=== PATIENT | male | born 1935 | race Caucasian/White ===

== ENCOUNTER 2020-09-25 06:30 | Outpatient (NON) | payer MEDICARE, SELFPAY ==
[2020-09-26 01:02] LABS: SARS-CoV-2 RNA PCR Negative
== END 2020-09-25 06:31 ==
LOC: ANHCOVIDDT 06:30
PROVIDERS: PCP Family Medicine Adolescent Medicine; Visit Provider Physician Assistant
DX: Z20.828 Contact with and (suspected) exposure to other viral communicable diseases (principal); R52 Pain, unspecified; R53.83 Other fatigue
CPT/HCPCS: 87635; C9803; U0003

== ENCOUNTER 2022-05-14 12:33 | Emergency (ER) | payer MEDICARE, SELFPAY ==
--- NOTE | ~2022-05-14 | XR_ITS ---
EXAMINATION: XR chest 1V portable Exam Date/Time: 05/14/2022 14:05 CDT HISTORY: covid Comparison: 09/12/2016. RESULT: Lines, tubes, and devices: None. Lungs and pleura: Bibasilar scar/atelectasis otherwise clear. Cardiomediastinal silhouette: Stable cardiomediastinal silhouette. Other: No acute osseous or upper abdominal finding. IMPRESSION: No acute cardiopulmonary process. Reviewed, dictated and finalized at location K.
[2022-05-14 12:46] VITALS: BP 175/85; PULSE 90; RESP 18; TEMP 36.9; O2SAT 99
[2022-05-14 13:47] VITALS: BP 160/101; PULSE 85; RESP 20; O2SAT 97
--- NOTE | 2022-05-14 14:09 | ED.URI ---
HPI - URI/Sore Throat General Chief Complaint: Upper Respiratory Infection Stated Complaint: covid + Time Seen by Provider: 05/14/22 13:44 History of Present Illness HPI Narrative: 87-year-old male with a history of COPD here for evaluation of rhinorrhea, congestion, fevers, cough for the past 3 days. Tmax 101. Patient states he tested positive for COVID at home. He is fully vaccinated. Has been taking Tylenol and Ibuprofen with good relief; last took Ibuprofen 3 hours [employer]. He contacted his PCP who told him to come to the ED. Has pulse ox at home; states he has been above 95 the entire time he has been sympomatic. Denies chest pain, shortness of breath, syncope. Related Data Allergies Allergy/AdvReac Type Severity Reaction Status Date / Time Penicillins Allergy Intermediate Rash Verified 02/08/16 09:38 albuterol Allergy Unknown Verified 02/08/16 09:38 Sulfa (Sulfonamide Allergy Unknown Verified 02/08/16 09:38 Antibiotics) Review of Systems Review of Systems: Gen: Reports fevers Eyes: Denies eye pain or visual change ENT: Reports congestion Respiratory: Reports cough. 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 Head: Normocephalic and atraumatic. EYES: PERRLA/EOMI, conjunctivae clear NOSE: No nasal drainage EARS: External ear normal in appearance THROAT: Oropharynx is clear. Mucous membranes are moist. NECK: Supple. No adenopathy, no masses. RESPIRATORY: Airway patent, respirations nonlabored. No wheezing. CARDIOVASCULAR: Regular rate and rhythm without murmurs, rubs, or gallops. ABDOMINAL: Normoactive bowel sounds. Soft, nontender, nondistended. No rebound tenderness or guarding. MUSCULOSKELETAL: Extremities are warm and well-perfused. Moves all extremities well. No edema. NEURO: Normal speech. No focal neurologic deficits. SKIN: Skin is warm and dry. No rashes. PSYCHIATRIC: Normal affect/mood. Course Vital Signs Vital signs: Vital Signs Temperature 98.4 F 05/14/22 12:46 Pulse Rate 90 05/14/22 12:46 Respiratory Rate 18 05/14/22 12:46 Blood Pressure 175/85 H 05/14/22 12:46 Pulse Oximetry 99 05/14/22 12:46 Oxygen Delivery Room Air 05/14/22 12:46 Temperature 98.4 F 05/14/22 12:46 Pulse Rate 95 05/14/22 16:02 Respiratory Rate 18 05/14/22 16:02 Blood Pressure 152/92 H 05/14/22 16:02 Pulse Oximetry 98 05/14/22 16:02 Oxygen Delivery Room Air 05/14/22 14:32 MDM - URI/Sore Throat MDM Narrative Medical decision making narrative: 87-year-old male with a history of COPD here for evaluation of fevers, chills, upper respiratory symptoms in the setting of a positive COVID test at home. Patient is hypertensive, his vital signs are otherwise normal, no hypoxia. His lungs are clear to auscultation. Chest x-ray clear, basic labs within normal limits. COVID test positive in the ED. No shortness of breath, chest pain, calf pain or tachycardia to suggest PE, and patient is already anticoagulated. Unfortunately, patient is not a candidate for Paxlovid given his lengthy list of home medications. Advised him to follow-up with his PCP for possible monoclonal antibody infusions. At this time he does not meet criteria for admission for COVID, he is not hyp
[2022-05-14 14:31] VITALS: BP 154/97; PULSE 94; RESP 18; O2SAT 96
[2022-05-14 14:32] VITALS: O2SAT 96
[2022-05-14 14:33] LABS: SARS-CoV-2 RNA PCR Positive
[2022-05-14 14:49] LABS: Basophils Absolute Auto 0.1 K/mm3 (0.0-0.1); Basophils Percent Auto 0.6 % (0.2-1.2); Eosinophils Absolute Auto 0.1 K/mm3 (0-0.3); Eosinophils Percent Auto 0.5 % (0-4.4); Hematocrit 41.7 % (42.0-52.0); Hemoglobin 13.8 g/dL (14.0-18.0); Immature Granulocyte Absolute 0.04 K/mm3 (0.00-0.031); Immature Granulocyte Percent A 0.4 % (0-0.5); Lymphocytes Absolute Auto 1.42 K/mm3 (0.9-3.2); Lymphocytes Percent Auto 13.5 % (18.3-44.2); Mean Corpuscular HGB Conc 33.1 g/dl (32-36); Mean Corpuscular Hemoglobin 30.5 pg (26-34); Mean Corpuscular Volume 92.1 fl (80-100); Mean Platelet Volume 9.4 fl (7.4-10.4); Monocytes Percent Auto 9.1 % (2.6-8.5); Neutrophils Percent Auto 75.9 % (45.5-73.1); Platelet Count Result 149 k/mm3 (150-375); Red Blood Count 4.53 M/mm3 (4.6-6.20); Red Cell Distribution Width 13.7 % (11.5-14.5); White Blood Count 10.5 K/mm3 (4.5-10.0)
[2022-05-14 14:58] LABS: Alanine Aminotransferase 15 U/L (6-50); Albumin Level 3.9 g/dL (3.5-5.1); Alkaline Phosphatase 80 U/L (38-126); Anion Gap 7 mmol/L (8-16); Aspartate Amino Transferase 29 U/L (17-59); Bilirubin,Total 1.6 mg/dL (0.2-1.3); Blood Urea Nitrogen 17 mg/dL (9-20); Calcium 8.5 mg/dL (8.4-10.2); Carbon Dioxide 24 mmol/L (22-30); Chloride 104 mmol/L (98-107); Estimated CRCL calculation 66 ml/min; Estimated Glomerular Filt Rate > 60; Glucose 85 mg/dL (65-110); Potassium 4.1 mmol/L (3.4-5.0); Sodium 135 mmol/L (137-145)
[2022-05-14] MEDS: ACETAMINOPHEN 325 MG TABLET 650 MG PO (15:25)
[2022-05-14 16:02] VITALS: BP 152/92; PULSE 95; RESP 18; O2SAT 98
== END 2022-05-14 16:03 | disposition home or self-care (01) ==
PROVIDERS: Physician Assistant; Emergency Provider Emergency Medicine; PCP Family Medicine Adolescent Medicine
DX: U07.1 COVID-19 (principal)
CPT/HCPCS: 36415; 71045; 80053; 85025; 99283; A9270; C9803; U0003; U0005

== ENCOUNTER 2023-11-07 06:06 | Inpatient (IN) | payer MEDICARE, SELFPAY ==
[2023-11-07] VITALS (21 sets, daily range): BP systolic 112–154; BP diastolic 58–102; PULSE 82–131; RESP 16–20; TEMP 36.3–37.2; O2SAT 88–99; BMI 25.2
--- NOTE | ~2023-11-07 | XR_ITS ---
XR chest 2V 11/10/2023 14:03 Indication: Shortness of breath Procedure: PA and lateral views the chest Comparison: Comparison to multiple prior studies sequentially, with oldest reviewed study dated 02/07. Findings: Right perihilar and bibasilar airspace disease. Small right pleural effusion. Borderline he art size. Impression: 1: Bibasilar airspace disease, compatible with pneumonia. Reviewed, dictated and finalized at location A. NE WATCHMAN Impression: 1: Bibasilar airspace disease, compatible with pneumonia.
--- NOTE | ~2023-11-07 | XR_ITS ---
EXAMINATION: XR chest 1V portable DATE: 11/07/2023 06:27 INDICATION: Chest pain. Cough. TECHNIQUE: A single frontal view of the chest was obtained. COMPARISON: Chest single view 05/14/2022, chest CT 11/16/2015 FINDINGS: There are airspace opacities in the right mid and lower lung zones and left lower lung zone . No pleural effusion or pneumothorax. The heart size is normal. IMPRESSION: 1. Airspace opacities in right mid and lower lung zones and left lower lung zone, consistent with ate lectasis/scarring versus pneumonia. Reviewed, dictated and finalized at location E. L TOUCH UP PAINTER IMPRESSION: 1. Airspace opacities in right mid and lower lung zones and left lower lung zon e, consistent with atelectasis/scarring versus pneumonia.
--- NOTE | 2023-11-07 06:15 | ECG_ITS ---
Measurements Intervals [place] Rate: 116 P: [place]: 0 QRS: 31 QRSD: 108 T: 29 QT: 329 QTc: 458 Interpretive Statements ATRIAL FIBRILLATION WITH RAPID VENTRICULAR RESPONSE MODERATE INTRAVENTRICULAR CONDUCTION DELAY [105+ ms QRS DURATION, 80+ ms Q/S IN V1/V2, NO Q AND 60+ ms R IN I/aVL/V5/V6] NONSPECIFIC ST & T-WAVE ABNORMALITY NO PREVIOUS ECG AVAILABLE FOR COMPARISON Electronically Signed On 11-07-2023 15:56:52 DRAGGER OUT by Kendrick Pink M.D.
--- NOTE | 2023-11-07 06:16 | ED.CHESTPAIN ---
HPI - Chest Pain General Chief Complaint: Chest Pain Stated Complaint: chest pain Time Seen by Provider: 11/07/23 06:14 Source: patient and family () Mode of arrival: ambulatory Limitations: no limitations History of Present Illness HPI narrative: [age]-year-old male with past medical history COPD (not on supplemental O2) and atrial fibrillation (on Pradaxa/dabigatran) presents with report of chest pain of 2 days duration. Patient has been having a cough that then became tightness across his chest. His cough has been productive ability/brown sputum. No palliating provoking factors. Chest pain radiates to his back. No fevers or sick contacts. He is complaining a headache and shortness of breath as well as back pain. Is reported that he has a history of pneumonia; he states he had a pneumonia when he was in the many years ago and had multiple episodes of pneumonia subsequently but none in the past year. He uses an inhaler for his COPD he. He trialed Mucinex and an expectorant and NyQuil. Related Data Home Medications Medication Instructions Recorded Confirmed celecoxib 200 mg capsule (Celebrex) 200 mg PO DAILY 06/22/22 12/09/22 dabigatran etexilate 150 mg 150 mg PO BID 06/22/22 12/09/22 capsule (Pradaxa) mesalamine 500 mg capsule,extended 1,000 mg PO BID 06/22/22 12/09/22 release metoprolol succinate 50 mg 50 mg PO DAILY 06/22/22 12/09/22 tablet,extended release 24 hr byjscafr-hv-oyypr 300 mcg-K 60 1 tablet PO DAILY 06/22/22 12/09/22 mcg-lycop 600 mcg-lutein 300 mcg tablet (Centrum Silver Men) potassium chloride 10 mEq 10 meq PO DAILY 06/22/22 12/09/22 capsule,extended release pravastatin 40 mg tablet 40 mg PO DAILY 06/22/22 12/09/22 mometasone-formoterol HFA 200 2 puff inhalation BID 12/09/22 12/09/22 mcg-5 mcg/actuation aerosol inhaler (Dulera) Allergies Allergy/AdvReac Type Severity Reaction Status Date / Time Penicillins Allergy Intermediate Rash Verified 11/07/23 06:17 albuterol Allergy Unknown Unknown Verified 11/07/23 06:17 Sulfa (Sulfonamide Allergy Unknown Unknown Verified 11/07/23 06:17 Antibiotics) codeine AdvReac Unknown Unknown Verified 11/07/23 06:17 furosemide AdvReac Unknown Hypotension Verified 11/07/23 06:17 naproxen AdvReac Unknown Unknown Verified 11/07/23 06:17 warfarin AdvReac Unknown Other Verified 11/07/23 06:17 PMFSH Past Medical History Medical History (Updated 11/07/23 @ 08:43 by Deidre Ureña MD) Atrial fibrillation Chronic obstructive pulmonary disease, unspecified COVID-19 History of cervical fracture 2014 History of deep venous thrombosis (DVT) of distal vein of right lower extremity History of pulmonary embolism Hx of fracture of right hip Hx: recurrent pneumonia Surgical History Surgical History History of total bilateral knee replacement right, 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, 10/30 Family History Family History (Updated 06/22/22 @ 08:34 by Selene Carver MA) Mother Breast cancer Sibling Heart disease Hypertension Sibling Hypertension Social History Social History (Updated 11/07/23 @ 08:37 by Deidre Ureña MD) Smoking status: Never smoker Second hand tobacco smoke exposure: Yes Alcohol intake: current Alcohol use details: Ocassionally Substance use: never Substance use type: does not use Living arrangements: with family Additional living arrangements comments: Occupation/Education: retired Gender identity (if verbalized by the patient): Male Spiritual care concerns: No Agree to blood products: Yes Exam Narrative: GENERAL: well-nourished, and in no acute distress, although appears acutely ill. Appears younger than stated age HEAD: Normocephalic, atraumatic. EYES: Non injected, non icteric ENT: No epistaxis. NECK: Supple. No meningismus CHEST: Diffuse wheezing bilaterally. Occasionally coughing. HEART: Irregularly irr
[2023-11-07 06:27] LABS: Basophils Absolute Auto 0.1 K/mm3 (0.0-0.1); Basophils Percent Auto 0.5 % (0.2-1.2); Eosinophils Percent Auto 0.3 % (0-4.4); Hematocrit 48.9 % (42.0-52.0); Hemoglobin 15.6 g/dL (14.0-18.0); Immature Granulocyte Absolute 0.09 K/mm3 (0.00-0.031); Immature Granulocyte Percent A 0.7 % (0-0.5); Lymphocytes Absolute Auto 1.74 K/mm3 (0.9-3.2); Lymphocytes Percent Auto 12.8 % (18.3-44.2); Mean Corpuscular HGB Conc 31.9 g/dl (32-36); Mean Corpuscular Hemoglobin 30.2 pg (26-34); Mean Corpuscular Volume 94.8 fl (80-100); Mean Platelet Volume 9.9 fl (7.4-10.4); Monocytes Absolute Auto 0.8 K/mm3 (0.1-0.6); Monocytes Percent Auto 5.6 % (2.6-8.5); Neutrophils Absolute Auto 10.9 K/mm3 (1.3-6.7); Neutrophils Percent Auto 80.1 % (45.5-73.1); Platelet Count Result 151 k/mm3 (150-375); Red Blood Count 5.16 M/mm3 (4.6-6.20); Red Cell Distribution Width 13.8 % (11.5-14.5); White Blood Count 13.6 K/mm3 (4.5-10.0)
[2023-11-07 06:42] LABS: Alanine Aminotransferase 18 U/L (6-50); Albumin Level 4.4 g/dL (3.5-5.1); Alkaline Phosphatase 93 U/L (38-126); Anion Gap 11 mmol/L (8-16); Aspartate Amino Transferase 32 U/L (17-59); Bilirubin,Total 1.8 mg/dL (0.2-1.3); Blood Urea Nitrogen 18 mg/dL (9-20); Calcium 9.3 mg/dL (8.4-10.2); Carbon Dioxide 24 mmol/L (22-30); Chloride 102 mmol/L (98-107); Estimated CRCL calculation 58 ml/min; Estimated Glomerular Filt Rate > 60; Glucose 100 mg/dL (65-110); INR 1.5; Potassium 3.9 mmol/L (3.4-5.0); Prothrombin Time 18.8 Seconds (11.1-14.7); Sodium 137 mmol/L (137-145)
[2023-11-07 06:44] LABS: Partial Thromboplastin Time 73.6 SECONDS (22.3-36.8)
[2023-11-07 06:45] LABS: D Dimer 0.37 ug/mL (<0.48)
[2023-11-07 06:53] LABS: NT Pro B Type Natriuretic Pept 2250 pg/mL (19.9-100); Troponin I < 0.012 ng/mL (0.000-0.034)
[2023-11-07 07:02] LABS: Influenza A QL RT-PCR Negative (Negative); Influenza B QL RT-PCR Negative (Negative); RSV RNA, RT-PCR Positive (Negative); SARS-CoV-2 RNA PCR Negative (Negative)
[2023-11-07] MEDS: AZITHROMYCIN 500 MG/NS 250 ML 500 MG/250 ML BAG 250 MG IVPB (07:21)
[2023-11-07] MEDS: predniSONE 20 MG TABLET 60 MG PO (07:21)
[2023-11-07] MEDS: LEVALBUTEROL NEB 1.25 MG/3 ML INHALATION (07:25)
[2023-11-07] MEDS: IPRATROPIUM BR 0.02% INH SOLN 0.5 MG/2.5 ML VIAL INHALATION (07:25)
[2023-11-07] MEDS: LACTATED RINGERS 1,000 ML 75 ML IV CONT (07:45)
--- NOTE | 2023-11-07 08:20 | ADMGEN ---
This patient, Jatin Dowd, was admitted to Medical Room 243-01. Patient/family oriented to hospital policies and general routines including ID bracelet, bed and alarms, visiting hours, pain management, procedures, bathroom and other care routines, personal items, smoking policy, room service/diet, and visiting hours. Information on how to activate the Rapid Response Team has been discussed. Patient/Family are encouraged to report perceived risks to care and to ask questions if they do not understand what they are told or what they should do.
[2023-11-07] MEDS: METOPROLOL TARTRATE 50 MG TAB PO (10:45)
--- NOTE | 2023-11-07 12:31 | PM.IMHP ---
H&P: HPI History of Present Illness Date/Time: 11/07/23 12:31 Chief Complaint: Patient came to the ER for evaluation due to cough congestion and chest pain Narrative: He is a pleasant gentleman with a prior history of COPD and atrial fibrillation who is complaining of cough and congestion for the last couple of days. He is also complaining of chest discomfort off and on for couple days as well, associated with cough, located in the anterior chest with some radiation to the back, no radiation to jaws or upper arms. No association with palpitations or swelling. Patient comes the ER for evaluation, workup was done which showed high blood pressure which has been controlled on meds. Patient has also been diagnosed with RSV for which he has been started on oxygen via nasal cannula and symptomatic care. Given his cardiac history, he is being admitted under observation for tele monitoring, follow-up cardiac enzymes and cardiology evaluation. Review of Systems Review of Systems: 14 systems were reviewed with pertinent positives and negatives per HPI. Except as documented in the HPI/progress notes, all other systems were reviewed and are negative. 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, 10/30 Family History Family History Mother Breast cancer Sibling Heart disease Hypertension Sibling Hypertension Social History Social History Smoking status: Never smoker Second hand tobacco smoke exposure: Yes Alcohol intake: never Alcohol use details: Ocassionally Substance use: never Substance use type: does not use Do You Feel Safe in your Home?: Yes Lack of Transportation: No Lack of Food: Never True Current Housing: I Have Housing Concerned About Future Housing: No Difficulty Paying Gas/Electric Bills: No Difficulty Paying for Meds: No Currently Unemployed: No Education: High School Diploma/GED Difficulty w/ Childcare or Family Care: No Living arrangements: with family Additional living arrangements comments: Occupation/Education: retired Gender identity (if verbalized by the patient): Male Spiritual care concerns: No Agree to blood products: Yes Meds Home Medications and Allergies Home Medications Medication Instructions Recorded Confirmed Type celecoxib 200 mg capsule (Celebrex) 200 mg PO DAILY 06/22/22 11/07/23 History dabigatran etexilate 150 mg 150 mg PO BID 06/22/22 11/07/23 History capsule (Pradaxa) mesalamine 500 mg capsule,extended 1,000 mg PO BID 06/22/22 11/07/23 History release metoprolol succinate 50 mg 50 mg PO DAILY 06/22/22 11/07/23 History tablet,extended release 24 hr taaalsot-tg-rhaca 300 mcg-K 60 1 tablet PO DAILY 06/22/22 11/07/23 History mcg-lycop 600 mcg-lutein 300 mcg tablet (Centrum Silver Men) potassium chloride 10 mEq 10 meq PO DAILY 06/22/22 11/07/23 History capsule,extended release pravastatin 40 mg tablet 40 mg PO DAILY 06/22/22 11/07/23 History mometasone-formoterol HFA 200 2 puff inhalation BID 12/09/22 11/07/23 History mcg-5 mcg/actuation aerosol inhaler (Dulera) clonazepam 0.5 mg tablet 0.5 mg PO QHS PRN restless leg(s) 07/18/23 11/07/23 Rx #30 tabs tamsulosin 0.4 mg capsule 0.4 mg PO DAILY 11/07/23 11/07/23 History vit C 250 mg-vit E 90 mg-zinc 40 1 tablet
--- NOTE | 2023-11-07 12:33 | PM.CNCAR ---
Assessment and Plan Assessment and plan (1) Atrial fibrillation with RVR: Code(s): I48.91 - Unspecified atrial fibrillation Status: Acute Assessment and Plan: Currently in RVR, likely precipitated by his COPD exacerbation and RSV infection. Has been taking Metoprolol 50mg QD at home, will increase dose of beta yahaira to 25mg Q6H for rate control. Continue to increase beta yahaira as needed for additional rate control as tolerated by his blood pressure. Resume home anticoagulant. (2) RSV (respiratory syncytial virus infection): Code(s): B33.8 - Other specified viral diseases Status: Acute Assessment and Plan: As per primary team (3) Acute exacerbation of chronic obstructive pulmonary disease: Code(s): J44.1 - Chronic obstructive pulmonary disease with (acute) exacerbation Status: Acute Assessment and Plan: As per primary team. History of Present Illness History of Present Illness Consult date/time: 11/07/23 12:33 Requesting physician: Azar Michael MD Consult reason: atrial fibrillation Reason For Visit: COPD Exacerbation due to RSV/Rate Controlled Afib/ Narrative: We are consulted for chest pain, atrial fibrillation with RVR. This is an 88 year old who follows with Dr. Zee. He has a history of symptomatic orthostatic hypotension, chronic atrial fibrillation, coronary artery disease, cardiomyopathy, chronic systolic and diastolic heart failure, pulmonary hypertension, chronic exertional dyspnea, history of bilateral DVT, chronic anticoagulation, history of pulmonary embolism. He has been on Metoprolol 50mg at night (had issues with low blood pressure when taken in the mornings). He did not tolerate Digoxin in the past. Patient presented with a productive cough and chest tightness that has been occurring for the past two days. Reports having fevers at home. He did test positive for RSV upon admission. Has a mild leukocytosis of 13.6. Troponin is negative. CXR with airspace opacities in right mid and lower lung zones and left lower lung zone, consistent with atelectasis/scarring versus pneumonia. EKG on admission with atrial fibrillation at a rate of 116bpm. Patient states he feels much better since admission. Still having productive cough but his chest tightness is feeling better. Chest tightness would come on with inspiration and make his ribs hurt. HR in the 130s at the time of my evaluation. 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, 10/30 Family History Family History Mother Breast cancer Sibling Heart disease Hypertension Sibling Hypertension Social History Social History Smoking status: Never smoker Second hand tobacco smoke exposure: Yes Alcohol intake: never Alcohol use details: Ocassionally Substance use: never Substance use type: does not use Do You Feel Safe in your Home?: Yes Lack of Transportation: No Lack of Food: Never True Current Housing: I Have Housing Concerned About Future Housing: No Difficulty Paying Gas/Electric Bills: No Difficulty Paying for Meds: No Currently Unemployed: No Education: High School Diploma/GED Difficulty w/ Childcare or Family Care: No Living arrangements: with family Additional living arrangemen
[2023-11-07 13:40] LABS: Troponin I < 0.012 ng/mL (0.000-0.034)
--- NOTE | 2023-11-07 16:03 | PC.NURSE ---
Recyaronved JASMINA from Dr. Michael @ 1600 to order loperamide 2mg PRN to patient's med list.
[2023-11-07] MEDS: OPTI-GEN TAB 1 TABLET PO (16:30)
[2023-11-07] MEDS: DABIGATRAN ETEXILATE 150 MG CAPSULE PO (16:30)
[2023-11-07] MEDS: LOPERAMIDE HCL 2 MG CAPSULE PO (16:30)
[2023-11-07] MEDS: METOPROLOL TARTRATE 25 MG TABLET PO ×2 (17:25→23:00)
[2023-11-07] MEDS: MESALAMINE 250 MG CAP CR 1000 MG PO (17:27)
[2023-11-07] MEDS: PRAVASTATIN SODIUM 20 MG TABLET 40 MG PO (17:27)
[2023-11-07] MEDS: TAMSULOSIN HCL 0.4 MG CAPSULE PO (17:27)
[2023-11-07 18:25] LABS: Troponin I < 0.012 ng/mL (0.000-0.034)
[2023-11-07] MEDS: FLUTICASONE/SALMETEROL 230-21 MCG INHALER 1 PUFF 2 PUFF INHALATION (20:00)
[2023-11-07] MEDS: ACETAMINOPHEN 325 MG TABLET 650 MG PO (23:00)
[2023-11-08] VITALS (16 sets, daily range): BP systolic 107–161; BP diastolic 50–90; PULSE 67–130; RESP 18–20; TEMP 36.7–37; O2SAT 91–98
[2023-11-08] MEDS: LACTATED RINGERS 1,000 ML 75 ML IV CONT ×2 (00:05→20:09)
[2023-11-08] MEDS: METOPROLOL TARTRATE 25 MG TABLET PO ×3 (05:30→17:46)
[2023-11-08 05:38] LABS: Hematocrit 41.2 % (42.0-52.0); Hemoglobin 13.2 g/dL (14.0-18.0); Immature Platelet Fraction Pct 3.3 % (0.9-11.2); Mean Corpuscular Hemoglobin 30.3 pg (26-34); Mean Corpuscular Volume 94.5 fl (80-100); Mean Platelet Volume 10.4 fl (7.4-10.4); Platelet Count Result 143 k/mm3 (150-375); Red Blood Count 4.36 M/mm3 (4.6-6.20); Red Cell Distribution Width 13.5 % (11.5-14.5); White Blood Count 9.5 K/mm3 (4.5-10.0)
[2023-11-08 05:49] LABS: Anion Gap 7 mmol/L (8-16); Blood Urea Nitrogen 20 mg/dL (9-20); Calcium 9.4 mg/dL (8.4-10.2); Carbon Dioxide 26 mmol/L (22-30); Chloride 104 mmol/L (98-107); Estimated CRCL calculation 58 ml/min; Estimated Glomerular Filt Rate > 60; Glucose 100 mg/dL (65-110); Phosphorus 2.2 mg/dL (2.5-4.5); Potassium 3.9 mmol/L (3.4-5.0); Sodium 137 mmol/L (137-145)
[2023-11-08] MEDS: FLUTICASONE/SALMETEROL 230-21 MCG INHALER 1 PUFF 2 PUFF INHALATION ×2 (07:47→20:20)
[2023-11-08] MEDS: DABIGATRAN ETEXILATE 150 MG CAPSULE PO ×2 (09:17→16:32)
[2023-11-08] MEDS: MESALAMINE 250 MG CAP CR 1000 MG PO ×2 (09:17→16:32)
[2023-11-08] MEDS: OPTI-GEN TAB 1 TABLET PO ×2 (09:17→16:32)
[2023-11-08] MEDS: AZITHROMYCIN 500 MG/NS 250 ML 500 MG/250 ML BAG 250 MG IVPB (09:18)
[2023-11-08] MEDS: MULTIVITAMINS /C LUTEIN (CENTRUM SILVER) TABLET *BKC 1 TAB PO (09:18)
[2023-11-08] MEDS: POTASSIUM CHLORIDE 10 MEQ ER TABLET PO (09:18)
[2023-11-08] MEDS: predniSONE 20 MG TABLET 40 MG PO (09:18)
[2023-11-08] MEDS: TAMSULOSIN HCL 0.4 MG CAPSULE PO ×2 (09:18→16:32)
--- NOTE | 2023-11-08 10:20 | PM.PNCARD ---
Progress Note: A&P Assessment and Plan (1) Atrial fibrillation with RVR: Code(s): I48.91 - Unspecified atrial fibrillation Status: Acute Assessment and Plan: RVR likely precipitated by his COPD exacerbation and RSV infection. Has been taking Metoprolol 50mg QD at home. I increased dose of beta yahaira to 25mg Q6H for rate control (equivalent of 100mg daily). He is now rate controlled. Recommend continuing with current dose of Metoprolol. At time of discharge, recommend to discharge him on Metoprolol succinate 100mg daily. Continue Pradaxa. Cardiology will sign off at this time. Will arrange for follow up with Dr. Zee. Please call us back if needed. (2) RSV (respiratory syncytial virus infection): Code(s): B33.8 - Other specified viral diseases Status: Acute Assessment and Plan: As per primary team. (3) Acute exacerbation of chronic obstructive pulmonary disease: Code(s): J44.1 - Chronic obstructive pulmonary disease with (acute) exacerbation Status: Acute Assessment and Plan: As per primary team. Subjective Date/time seen: 11/08/23 10:20 Interval history: Reason for visit: Atrial fibrillation with RVR HPI: We are consulted for chest pain, atrial fibrillation with RVR. This is an 88 year old who follows with Dr. Zee. He has a history of symptomatic orthostatic hypotension, chronic atrial fibrillation, coronary artery disease, cardiomyopathy, chronic systolic and diastolic heart failure, pulmonary hypertension, chronic exertional dyspnea, history of bilateral DVT, chronic anticoagulation, history of pulmonary embolism. He has been on Metoprolol 50mg at night (had issues with low blood pressure when taken in the mornings). He did not tolerate Digoxin in the past. Patient presented with a productive cough and chest tightness that has been occurring for the past two days. Reports having fevers at home. He did test positive for RSV upon admission. Has a mild leukocytosis of 13.6. Troponin is negative. CXR with airspace opacities in right mid and lower lung zones and left lower lung zone, consistent with atelectasis/scarring versus pneumonia. EKG on admission with atrial fibrillation at a rate of 116bpm. Patient states he feels much better since admission. Still having productive cough but his chest tightness is feeling better. Chest tightness would come on with inspiration and make his ribs hurt. HR in the 130s at the time of my evaluation. Date of service 11/08: Feeling better. Was coughing a lot last night with productive sputum. Tele with rate controlled AFIB. Review of Systems Review of Systems: + Pleuritic chest pain. + Cough Exam Const: General: no acute distress HENMT: Mouth: Yes dry mucous membranes Eyes: General: appearance normal, both eyes and all related structures Sclera: sclerae normal Neck: Neck: supple Resp: Effort & Inspection: normal respiratory effort Auscultation: diminished lung sounds Cardio: Rhythm: abnormal rhythm irregularly irregular Skin: General skin exam: normal color Neuro: Speech: normal speech Psych: Mental Status: mental status grossly normal Affect: normal affect Objective Data Vital Signs Vital Signs: Vital Signs - 24 hr 11/07/23 10:45 11/07/23 12:04 11/07/23 13:50 Temperature 36.7 C Pulse Rate 131 H 122 H 96 Respiratory Rate 20 Blood Pressure 142/73 H Pulse Oximetry 98 Oxygen Delivery Oxygen Flow Rate Fraction of Inspired Oxygen 11/07/23 17:25 11/07/23 16:00 11/07/23 16:30 Temperature 36.3 C L Pulse Rate 83 88 87 Respiratory Rate 20 Blood Pressure 122/58 L Pulse Oximetry 98 Oxygen Delivery Oxygen Flow Rate Fraction of Inspired Oxygen 11/07/23 19:59 11/07/23 20:01 11/07/23 20:00 Temperature 36.8 C Pulse Rate 89 84 Respiratory Rate 18 Blood Pressure 131/84 Pulse Oximetry 97 97 Oxygen Delivery Nasal Cannula Oxygen Flow Rate 4 Fra
[2023-11-08] MEDS: POTASSIUM PHOS,M-BASIC-D-BASIC 20 MMOL in SODIUM CHLORIDE 0.9% IV 250 ML 64.17 MMOL IVPB (10:59)
--- NOTE | 2023-11-08 15:21 | PM.IMPN ---
Progress Note: A&P Assessment and Plan (1) Atrial fibrillation with RVR: Code(s): I48.91 - Unspecified atrial fibrillation Status: Acute (2) Acute exacerbation of chronic obstructive pulmonary disease: Code(s): J44.1 - Chronic obstructive pulmonary disease with (acute) exacerbation Status: Acute (3) Hypoxemia requiring supplemental oxygen: Code(s): R09.02 - Hypoxemia; Z99.81 - Dependence on supplemental oxygen Status: Acute (4) RSV (respiratory syncytial virus infection): Code(s): B33.8 - Other specified viral diseases Status: Acute (5) Acute bronchitis: Code(s): J20.9 - Acute bronchitis, unspecified Status: Acute (6) Restless legs syndrome: Code(s): G25.81 - Restless legs syndrome Status: Acute (7) Pure hypercholesterolemia, unspecified: Code(s): E78.00 - Pure hypercholesterolemia, unspecified Status: Acute (8) Benign prostatic hyperplasia with lower urinary tract symptoms: Code(s): N40.1 - Benign prostatic hyperplasia with lower urinary tract symptoms Status: Acute (9) Aortic atherosclerosis: Code(s): I70.0 - Atherosclerosis of aorta Status: Acute (10) Cardiomyopathy, unspecified: Code(s): I42.9 - Cardiomyopathy, unspecified Status: Acute (11) Crohn disease: Code(s): K50.90 - Crohn's disease, unspecified, without complications Status: Acute (12) Pulmonary hypertension, unspecified: Code(s): I27.20 - Pulmonary hypertension, unspecified Status: Acute (13) [facility] (current) use of anticoagulants: Code(s): Z79.01 - 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 Status: Acute (14) Essential (primary) hypertension: Code(s): I10 - Essential (primary) hypertension Status: Acute (15) Paroxysmal atrial fibrillation: Code(s): I48.0 - Paroxysmal atrial fibrillation Status: Acute Plan Advance patient to full inpatient status Continuous cardiac tele-monitoring Initial EKG and 1st set of cardiac enzymes are negative Monitor cardiac enzymes ?3 which have been negative His cardiac symptoms appear to be weak and nonspecific in nature associated with his RSV Cardiology consultation ordered for evaluation, further treatment recommendations and work up Consider Full 2-D echo with color-flow and doppler ordered in am to evaluate cardiac structure and function after evaluation by Cardiology Cardiology evaluated the patient, adjusted his meds and cleared him for discharge from cardiac standpoint Patient started on his home meds DC IV fluids as patient is now eating and drinking Strict input and output monitoring He likely has acute bronchitis in addition to his RSV hence given 1 dose of IV azithromycin in the ER Continue with the IV azithromycin in the hospital to be switched to oral to complete 5 days of course Continue with oxygen via nasal cannula, wean as tolerated to keep O2 sats around 94% Patient given 1 dose of prednisone in the ER Continue with prednisone 40 mg daily in am DC planning on oral antibiotics and steroids in am once he is more stable and weaned off of his oxygen ? Patient seen and examined at bedside during my morning rounds ? Collaborated with patient's nurse at the bedside in detail and addressed all concerns ? Labs, electrolytes,? radiology, investigations and test results reviewed ? Consult/Nursing/Ancilliary notes on the chart reviewed and appreciated ? Spoke with patient/family at the bedside and answered all the questions that they had Repeat labs in a.m. Electrolyte replacement as per protocol. Patient will be monitored very closely on the floor. Further recommendations as per the hospital course. Subjective Date/time seen: 11/08/23 15:21 Interval history: Patient seen and evaluated bedside today. Not complaining of any chest pain. Still requiring oxygen although shortness of breath is slowly improving. Still feels tired and f
[2023-11-08] MEDS: PRAVASTATIN SODIUM 20 MG TABLET 40 MG PO (17:46)
[2023-11-08] MEDS: clonazePAM (*CRX) 0.5 MG TABLET PO (20:09)
[2023-11-09] VITALS (20 sets, daily range): BP systolic 135–155; BP diastolic 78–98; PULSE 59–118; RESP 17–20; TEMP 36.5–36.9; O2SAT 91–98
[2023-11-09] MEDS: METOPROLOL TARTRATE 25 MG TABLET PO ×4 (00:01→17:18)
[2023-11-09] MEDS: FLUTICASONE/SALMETEROL 230-21 MCG INHALER 1 PUFF 2 PUFF INHALATION ×2 (07:10→20:44)
[2023-11-09] MEDS: IPRATROPIUM BR 0.02% INH SOLN 0.5 MG/2.5 ML VIAL INHALATION (08:50)
[2023-11-09] MEDS: ALBUTEROL SULFATE NEB 2.5 MG/3 ML INH INHALATION (08:50)
[2023-11-09] MEDS: MULTIVITAMINS /C LUTEIN (CENTRUM SILVER) TABLET *BKC 1 TAB PO (09:26)
[2023-11-09] MEDS: MESALAMINE 250 MG CAP CR 1000 MG PO ×2 (09:26→17:17)
[2023-11-09] MEDS: POTASSIUM CHLORIDE 10 MEQ ER TABLET PO (09:26)
[2023-11-09] MEDS: methylPREDNISolone SOD SUCC 125 MG VIAL IV PUSH (09:26)
[2023-11-09] MEDS: OPTI-GEN TAB 1 TABLET PO ×2 (09:26→17:18)
[2023-11-09] MEDS: DABIGATRAN ETEXILATE 150 MG CAPSULE PO ×2 (09:26→17:19)
[2023-11-09] MEDS: TAMSULOSIN HCL 0.4 MG CAPSULE PO ×2 (09:26→17:17)
[2023-11-09] MEDS: AZITHROMYCIN 500 MG/NS 250 ML 500 MG/250 ML BAG 250 MG IVPB (09:28)
[2023-11-09] MEDS: ACETAMINOPHEN 325 MG TABLET 650 MG PO (09:36)
[2023-11-09] MEDS: MELATONIN 3 MG TABLET PO ×2 (12:29→21:06)
[2023-11-09] MEDS: LEVALBUTEROL NEB 1.25 MG/3 ML INHALATION ×2 (12:59→20:48)
[2023-11-09] MEDS: guaiFENesin 12 HR 600 MG TABCR PO ×2 (14:54→21:06)
[2023-11-09] MEDS: PRAVASTATIN SODIUM 20 MG TABLET 40 MG PO (17:17)
[2023-11-09] MEDS: methylPREDNISolone SOD SUCC 125 MG VIAL 60 MG IV PUSH ×2 (17:20→21:06)
--- NOTE | 2023-11-09 19:07 | PM.IMPN ---
Progress Note: A&P Assessment and Plan (1) Atrial fibrillation with RVR: Code(s): I48.91 - Unspecified atrial fibrillation Status: Acute (2) Acute exacerbation of chronic obstructive pulmonary disease: Code(s): J44.1 - Chronic obstructive pulmonary disease with (acute) exacerbation Status: Acute (3) Hypoxemia requiring supplemental oxygen: Code(s): R09.02 - Hypoxemia; Z99.81 - Dependence on supplemental oxygen Status: Acute (4) RSV (respiratory syncytial virus infection): Code(s): B33.8 - Other specified viral diseases Status: Acute (5) Acute bronchitis: Code(s): J20.9 - Acute bronchitis, unspecified Status: Acute (6) Restless legs syndrome: Code(s): G25.81 - Restless legs syndrome Status: Acute (7) Pure hypercholesterolemia, unspecified: Code(s): E78.00 - Pure hypercholesterolemia, unspecified Status: Acute (8) Benign prostatic hyperplasia with lower urinary tract symptoms: Code(s): N40.1 - Benign prostatic hyperplasia with lower urinary tract symptoms Status: Acute (9) Aortic atherosclerosis: Code(s): I70.0 - Atherosclerosis of aorta Status: Acute (10) Cardiomyopathy, unspecified: Code(s): I42.9 - Cardiomyopathy, unspecified Status: Acute (11) Crohn disease: Code(s): K50.90 - Crohn's disease, unspecified, without complications Status: Acute (12) Pulmonary hypertension, unspecified: Code(s): I27.20 - Pulmonary hypertension, unspecified Status: Acute (13) residential (current) use of anticoagulants: Code(s): 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 Status: Acute (14) Essential (primary) hypertension: Code(s): I10 - Essential (primary) hypertension Status: Acute (15) Paroxysmal atrial fibrillation: Code(s): I48.0 - Paroxysmal atrial fibrillation Status: Acute Plan Advance patient to full inpatient status Continuous cardiac tele-monitoring Initial EKG and 1st set of cardiac enzymes are negative Monitor cardiac enzymes ?3 which have been negative His cardiac symptoms appear to be weak and nonspecific in nature associated with his RSV Cardiology consulted who evaluated the patient, adjusted his meds and cleared him for discharge from cardiac standpoint Patient started on his home meds DC IV fluids as patient is now eating and drinking Strict input and output monitoring He likely has acute bronchitis in addition to his RSV hence given 1 dose of IV azithromycin in the ER Continue with the IV azithromycin in the hospital to be switched to oral to complete 5 days of course Continue with oxygen via nasal cannula, wean as tolerated to keep O2 sats around 94% Patient requiring high-flow oxygen with worsening shortness of breath hence IV Solu-Medrol 125 mg x1 dose given Continue with IV Solu-Medrol 60 mg Q 8hrs Patient started on Xopenex and Atrovent nebulizers q.4 hours as needed Advised patient to use Acapella for or chest de-congestion DC planning on oral antibiotics and steroids in am once he is more stable He will need need home O2 eval prior to discharge ? Patient seen and examined at bedside during my morning rounds ? Collaborated with patient's nurse at the bedside in detail and addressed all concerns ? Labs, electrolytes,? radiology, investigations and test results reviewed ? Consult/Nursing/Ancilliary notes on the chart reviewed and appreciated ? Spoke with patient/family at the bedside and answered all the questions that they had Repeat labs in a.m. Electrolyte replacement as per protocol. Patient will be monitored very closely on the floor. Further recommendations as per the hospital course. Subjective Date/time seen: 11/09/23 19:07 Interval history: Patient feeling weak and tired. Complaining of shortness of breath. Required high-flow nasal cannula earlier in the day. Started on IV steroids and nebulizers. Review of
[2023-11-10] VITALS (30 sets, daily range): BP systolic 145–167; BP diastolic 90–98; PULSE 72–110; RESP 17–20; TEMP 36.3–36.6; O2SAT 86–98
[2023-11-10] MEDS: METOPROLOL TARTRATE 25 MG TABLET PO ×5 (00:10→23:08)
[2023-11-10] MEDS: LEVALBUTEROL NEB 1.25 MG/3 ML INHALATION ×4 (02:25→19:38)
[2023-11-10 05:48] LABS: Basophils Percent Auto 0.1 % (0.2-1.2); Hematocrit 38.5 % (42.0-52.0); Hemoglobin 12.4 g/dL (14.0-18.0); Immature Granulocyte Absolute 0.05 K/mm3 (0.00-0.031); Immature Granulocyte Percent A 0.5 % (0-0.5); Lymphocytes Absolute Auto 0.81 K/mm3 (0.9-3.2); Lymphocytes Percent Auto 7.6 % (18.3-44.2); Mean Corpuscular HGB Conc 32.2 g/dl (32-36); Mean Corpuscular Hemoglobin 30.2 pg (26-34); Mean Corpuscular Volume 93.9 fl (80-100); Mean Platelet Volume 10.3 fl (7.4-10.4); Monocytes Absolute Auto 0.4 K/mm3 (0.1-0.6); Neutrophils Absolute Auto 9.3 K/mm3 (1.3-6.7); Neutrophils Percent Auto 87.8 % (45.5-73.1); Platelet Count Result 141 k/mm3 (150-375); Red Cell Distribution Width 13.5 % (11.5-14.5); White Blood Count 10.6 K/mm3 (4.5-10.0)
[2023-11-10 06:00] LABS: Anion Gap 6 mmol/L (8-16); Blood Urea Nitrogen 19 mg/dL (9-20); Carbon Dioxide 27 mmol/L (22-30); Chloride 104 mmol/L (98-107); Estimated CRCL calculation 74 ml/min; Estimated Glomerular Filt Rate > 60; Glucose 161 mg/dL (65-110); Potassium 3.9 mmol/L (3.4-5.0); Sodium 137 mmol/L (137-145)
[2023-11-10] MEDS: guaiFENesin 12 HR 600 MG TABCR PO ×3 (06:24→21:06)
[2023-11-10] MEDS: methylPREDNISolone SOD SUCC 125 MG VIAL 60 MG IV PUSH ×3 (06:24→21:05)
[2023-11-10] MEDS: MESALAMINE 250 MG CAP CR 1000 MG PO ×2 (08:56→17:07)
[2023-11-10] MEDS: DABIGATRAN ETEXILATE 150 MG CAPSULE PO ×2 (08:56→17:07)
[2023-11-10] MEDS: MULTIVITAMINS /C LUTEIN (CENTRUM SILVER) TABLET *BKC 1 TAB PO (08:57)
[2023-11-10] MEDS: OPTI-GEN TAB 1 TABLET PO ×2 (08:57→17:08)
[2023-11-10] MEDS: TAMSULOSIN HCL 0.4 MG CAPSULE PO ×2 (08:57→17:08)
[2023-11-10] MEDS: POTASSIUM CHLORIDE 10 MEQ ER TABLET PO (08:57)
[2023-11-10] MEDS: AZITHROMYCIN 500 MG/NS 250 ML 500 MG/250 ML BAG 250 MG IVPB (08:59)
--- NOTE | 2023-11-10 10:56 | HOMEO2EVAL ---
Evaluation was performed at [facility] Home Oxygen Evaluation RC: Home Oxygen (O2) Evaluation Start: 11/10/23 07:52 Freq: ONCE Status: Active Protocol: RPE Activity Type Activity Date Activity User E-sign Co-sign Detail Recorded Client Recorded Date Recorded By Document 11/10/23 09:45 [email or web address] [email or web address] 11/10/23 10:56 DJO Document 11/10/23 09:50 [email or web address] [email or web address] 11/10/23 10:56 DJO Document 11/10/23 09:55 [email or web address] [email or web address] 11/10/23 10:56 DJO Document 11/10/23 10:00 [email or web address] [email or web address] 11/10/23 10:56 DJO Document 11/10/23 10:05 [email or web address] [email or web address] 11/10/23 10:56 DJO Document 11/10/23 10:10 [email or web address] [email or web address] 11/10/23 10:56 DJO Document 11/10/23 10:25 [email or web address] [email or web address] 11/10/23 10:56 DJO 11/10/23 11/10/23 11/10/23 09:45 09:50 09:55 Home O2 Evaluation [Oxygen] -Test Phase Resting Resting Resting -Oxygen Delivery Room Air Nasal Cannula Nasal Cannula -Oxygen Flow Rate (L/min) 1 2 [Pulse Oximetry] -Pulse Oximetry (90-100 %) 86 L 87 L 91 [Pulse Rate] -Pulse Rate (60-100 beats/min) 94 90 89 [Evaluation] -Activity Tolerance [Exercise] -Ambulation Distance (feet) -Ambulation Distance (meters) [Charges] -Evaluation Charges O2 Evaluation by Pulmonary 11/10/23 11/10/23 11/10/23 10:00 10:05 10:10 Home O2 Evaluation [Oxygen] -Test Phase Exercise Exercise Exercise -Oxygen Delivery Nasal Cannula Nasal Cannula Nasal Cannula -Oxygen Flow Rate (L/min) 2 3 4 [Pulse Oximetry] -Pulse Oximetry (90-100 %) 86 L 88 L 90 [Pulse Rate] -Pulse Rate (60-100 beats/min) 108 H 109 H 110 H [Evaluation] -Activity Tolerance Good [Exercise] -Ambulation Distance (feet) 400 -Ambulation Distance (meters) 121.91 [Charges] -Evaluation Charges 11/10/23 10:25 Home O2 Evaluation [Oxygen] -Test Phase Resting -Oxygen Delivery Nasal Cannula -Oxygen Flow Rate (L/min) 2 [Pulse Oximetry] -Pulse Oximetry (90-100 %) 91 [Pulse Rate] -Pulse Rate (60-100 beats/min) 89 [Evaluation] -Activity Tolerance [Exercise] -Ambulation Distance (feet) -Ambulation Distance (meters) [Charges] -Evaluation Charges
--- NOTE | 2023-11-10 14:08 | PCRCNOTE ---
HOME O2 EVAL COMPLETE, 2L AT REST AND 4L WITH ACTIVITY. SET UP WITH IV&RESP. PHONE NUMBER
[2023-11-10] MEDS: PRAVASTATIN SODIUM 20 MG TABLET 40 MG PO (17:09)
--- NOTE | 2023-11-10 19:00 | PM.IMPN ---
Progress Note: A&P Assessment and Plan (1) Atrial fibrillation with RVR: Code(s): I48.91 - Unspecified atrial fibrillation Status: Acute (2) Acute exacerbation of chronic obstructive pulmonary disease: Code(s): J44.1 - Chronic obstructive pulmonary disease with (acute) exacerbation Status: Acute (3) Hypoxemia requiring supplemental oxygen: Code(s): R09.02 - Hypoxemia; Z99.81 - Dependence on supplemental oxygen Status: Acute (4) RSV (respiratory syncytial virus infection): Code(s): B33.8 - Other specified viral diseases Status: Acute (5) Acute bronchitis: Code(s): J20.9 - Acute bronchitis, unspecified Status: Acute (6) Restless legs syndrome: Code(s): G25.81 - Restless legs syndrome Status: Acute (7) Pure hypercholesterolemia, unspecified: Code(s): E78.00 - Pure hypercholesterolemia, unspecified Status: Acute (8) Benign prostatic hyperplasia with lower urinary tract symptoms: Code(s): N40.1 - Benign prostatic hyperplasia with lower urinary tract symptoms Status: Acute (9) Aortic atherosclerosis: Code(s): I70.0 - Atherosclerosis of aorta Status: Acute (10) Cardiomyopathy, unspecified: Code(s): I42.9 - Cardiomyopathy, unspecified Status: Acute (11) Crohn disease: Code(s): K50.90 - Crohn's disease, unspecified, without complications Status: Acute (12) Pulmonary hypertension, unspecified: Code(s): I27.20 - Pulmonary hypertension, unspecified Status: Acute (13) half-way (current) use of anticoagulants: Code(s): Z79.01 - 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 Status: Acute (14) Essential (primary) hypertension: Code(s): I10 - Essential (primary) hypertension Status: Acute (15) Paroxysmal atrial fibrillation: Code(s): I48.0 - Paroxysmal atrial fibrillation Status: Acute Plan Advance patient to full inpatient status Continuous cardiac tele-monitoring Initial EKG and 1st set of cardiac enzymes are negative Monitor cardiac enzymes ?3 which have been negative His cardiac symptoms appear to be weak and nonspecific in nature associated with his RSV Cardiology consulted who evaluated the patient, adjusted his meds and cleared him for discharge from cardiac standpoint Patient started on his home meds DC IV fluids as patient is now eating and drinking Strict input and output monitoring He likely has acute bronchitis in addition to his RSV hence given 1 dose of IV azithromycin in the ER Continue with the IV azithromycin in the hospital to be switched to oral to complete 5 days of course 11/09/2023: Patient requiring high-flow oxygen with worsening shortness of breath hence IV Solu-Medrol 125 mg x1 dose given Decreased IV Solu-Medrol to 60 mg Q 12hrs Patient started on Xopenex and Atrovent nebulizers q.4 hours as needed Advised patient to use Acapella for or chest de-congestion Continue with oxygen via nasal cannula, wean as tolerated to keep O2 sats around 94% DC planning on oral antibiotics and steroids in am once he is more stable He will need need home O2 eval prior to discharge Encourage ambulation in hallways ? Patient seen and examined at bedside during my morning rounds ? Collaborated with patient's nurse at the bedside in detail and addressed all concerns ? Labs, electrolytes,? radiology, investigations and test results reviewed ? Consult/Nursing/Ancilliary notes on the chart reviewed and appreciated ? Spoke with patient/family at the bedside and answered all the questions that they had Repeat labs in a.m. Electrolyte replacement as per protocol. Patient will be monitored very closely on the floor. Further recommendations as per the hospital course. Time Spent With Patient Time with patient: 25 - 35 minutes Subjective Date/time seen: 11/10/23 19:00 Interval history: Patient feeling little better today. Shortness of breath has improv
[2023-11-10] MEDS: FLUTICASONE/SALMETEROL 230-21 MCG INHALER 1 PUFF 2 PUFF INHALATION (19:42)
[2023-11-10] MEDS: MELATONIN 3 MG TABLET PO (21:05)
[2023-11-10] MEDS: LOPERAMIDE HCL 2 MG CAPSULE PO (23:08)
[2023-11-11] VITALS (13 sets, daily range): BP systolic 133–168; BP diastolic 80–99; PULSE 82–105; RESP 18–20; TEMP 36.3–36.4; O2SAT 91–96
[2023-11-11] MEDS: LEVALBUTEROL NEB 1.25 MG/3 ML INHALATION ×2 (01:53→08:17)
[2023-11-11] MEDS: guaiFENesin 12 HR 600 MG TABCR PO ×2 (05:14→13:19)
[2023-11-11] MEDS: METOPROLOL TARTRATE 25 MG TABLET PO ×3 (05:14→11:56)
[2023-11-11] MEDS: FLUTICASONE/SALMETEROL 230-21 MCG INHALER 1 PUFF 2 PUFF INHALATION (08:18)
[2023-11-11] MEDS: MESALAMINE 250 MG CAP CR 1000 MG PO (08:52)
[2023-11-11 08:53] LABS: Basophils Percent Auto 0.2 % (0.2-1.2); Hematocrit 41.4 % (42.0-52.0); Hemoglobin 13.1 g/dL (14.0-18.0); Immature Granulocyte Absolute 0.12 K/mm3 (0.00-0.031); Lymphocytes Absolute Auto 1.46 K/mm3 (0.9-3.2); Lymphocytes Percent Auto 11.8 % (18.3-44.2); Mean Corpuscular HGB Conc 31.6 g/dl (32-36); Mean Corpuscular Hemoglobin 29.5 pg (26-34); Mean Corpuscular Volume 93.2 fl (80-100); Monocytes Absolute Auto 0.6 K/mm3 (0.1-0.6); Monocytes Percent Auto 4.9 % (2.6-8.5); Neutrophils Absolute Auto 10.1 K/mm3 (1.3-6.7); Neutrophils Percent Auto 82.1 % (45.5-73.1); Platelet Count Result 184 k/mm3 (150-375); Red Blood Count 4.44 M/mm3 (4.6-6.20); Red Cell Distribution Width 13.3 % (11.5-14.5); White Blood Count 12.4 K/mm3 (4.5-10.0)
[2023-11-11] MEDS: TAMSULOSIN HCL 0.4 MG CAPSULE PO (08:53)
[2023-11-11] MEDS: OPTI-GEN TAB 1 TABLET PO (08:53)
[2023-11-11] MEDS: MULTIVITAMINS /C LUTEIN (CENTRUM SILVER) TABLET *BKC 1 TAB PO (08:53)
[2023-11-11] MEDS: DABIGATRAN ETEXILATE 150 MG CAPSULE PO (08:53)
[2023-11-11] MEDS: methylPREDNISolone SOD SUCC 125 MG VIAL 60 MG IV PUSH (08:54)
[2023-11-11] MEDS: AZITHROMYCIN 500 MG/NS 250 ML 500 MG/250 ML BAG 250 MG IVPB (08:54)
[2023-11-11] MEDS: POTASSIUM CHLORIDE 10 MEQ ER TABLET PO (08:57)
--- NOTE | 2023-11-11 14:05 | PM.DS ---
DS: Admitting Diagnosis Discharge Date 11/10/2023: Admitting Diagnosis Chest pain Acute exacerbation of COPD Acute respiratory failure with hypoxia Paroxysmal atrial fibrillation Respiratory syncytial virus infection DS: Discharge Diagnosis Discharge Diagnosis (1) Atrial fibrillation with RVR: Code(s): I48.91 - Unspecified atrial fibrillation Status: Acute (2) Acute exacerbation of chronic obstructive pulmonary disease: Code(s): J44.1 - Chronic obstructive pulmonary disease with (acute) exacerbation Status: Acute (3) Hypoxemia requiring supplemental oxygen: Code(s): R09.02 - Hypoxemia; Z99.81 - Dependence on supplemental oxygen Status: Acute (4) RSV (respiratory syncytial virus infection): Code(s): B33.8 - Other specified viral diseases Status: Acute (5) Acute bronchitis: Code(s): J20.9 - Acute bronchitis, unspecified Status: Acute (6) Restless legs syndrome: Code(s): G25.81 - Restless legs syndrome Status: Acute (7) Pure hypercholesterolemia, unspecified: Code(s): E78.00 - Pure hypercholesterolemia, unspecified Status: Acute (8) Benign prostatic hyperplasia with lower urinary tract symptoms: Code(s): N40.1 - Benign prostatic hyperplasia with lower urinary tract symptoms Status: Acute (9) Aortic atherosclerosis: Code(s): I70.0 - Atherosclerosis of aorta Status: Acute (10) Cardiomyopathy, unspecified: Code(s): I42.9 - Cardiomyopathy, unspecified Status: Acute (11) Crohn disease: Code(s): K50.90 - Crohn's disease, unspecified, without complications Status: Acute (12) Pulmonary hypertension, unspecified: Code(s): I27.20 - Pulmonary hypertension, unspecified Status: Acute (13) Atherosclerotic heart disease of [place] coronary artery without angina pectoris: Code(s): I25.10 - Atherosclerotic heart disease of [place] coronary artery without angina pectoris Status: Acute (14) 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 12:31 Chief Complaint: Patient came to the ER for evaluation due to cough congestion and chest pain Narrative: He is a pleasant gentleman with a prior history of COPD and atrial fibrillation who is complaining of cough and congestion for the last couple of days.? He is also complaining of chest discomfort off and on for couple days as well, associated with cough, located in the anterior chest with some radiation to the back, no radiation to jaws or upper arms.? No association with palpitations or swelling.? Patient comes the ER for evaluation, workup was done which showed high blood pressure which has been controlled on meds.? Patient has also been diagnosed with RSV for which he has been started on oxygen via nasal cannula and symptomatic care.? Given his cardiac history, he is being admitted under observation for tele monitoring, follow-up cardiac enzymes and cardiology evaluation. HOSPITAL COURSE ... Date of Admission - 11/09/2023: Plan Advance patient to full inpatient status Continuous cardiac tele-monitoring Initial EKG and 1st set of cardiac enzymes are negative Monitor cardiac enzymes ?3 which have been negative His cardiac symptoms appear to be weak and nonspecific in nature associated with his RSV Cardiology consulted who evaluated the patient, adjusted his meds and cleared him for discharge from cardiac standpoint P
== END 2023-11-11 15:20 | disposition home or self-care (01) | DRG 190 ==
LOC: ANHED 06:37 → ANH2MED 08:43
PROVIDERS: Admitting Provider Internal Medicine; Emergency Provider Student in an Organized Health Care Education/Training Program; PCP Family Medicine Adolescent Medicine; Visit Provider Family Medicine
DX: J44.1 Chronic obstructive pulmonary disease with (acute) exacerbation (principal); J96.01 Acute respiratory failure with hypoxia; I42.9 Cardiomyopathy, unspecified; K50.90 Crohn's disease, unspecified, without complications; I50.42 Chronic combined systolic (congestive) and diastolic (congestive) heart failure; J44.0 Chronic obstructive pulmonary disease with (acute) lower respiratory infection; J20.5 Acute bronchitis due to respiratory syncytial virus; I11.0 Hypertensive heart disease with heart failure; I48.0 Paroxysmal atrial fibrillation; G25.81 Restless legs syndrome; E78.00 Pure hypercholesterolemia, unspecified; N40.0 Benign prostatic hyperplasia without lower urinary tract symptoms; I70.0 Atherosclerosis of aorta; Z20.822 Contact with and (suspected) exposure to COVID-19; I27.20 Pulmonary hypertension, unspecified; I25.10 Atherosclerotic heart disease of native coronary artery without angina pectoris; Z96.653 Presence of artificial knee joint, bilateral; Z79.01 Long term (current) use of anticoagulants; Z86.16 Personal history of COVID-19; Z86.718 Personal history of other venous thrombosis and embolism; Z86.711 Personal history of pulmonary embolism
CPT/HCPCS: 36415; 71045; 71046; 80048; 80053; 83735; 83880; 84100; 84484; 85025; 85055; 85380; 85610; 85730; 87637; 93005; 94618; 94640; 96361; 96365; 96375; 99285; A9270; G0378; J0456; J2930; J7050; J7120; J7512

== ENCOUNTER 2024-09-27 07:56 | Outpatient (CLI) | payer MEDICARE, SELFPAY ==
--- NOTE | 2024-09-27 14:34 | WPDPFTINT ---
PFT Procedure Performed PFT Procedure Performed Plethysmography (Lung Vol) Diffusing Cap (DLCO) Flow Vol Loop Spirometry w/o Bronchodil PFT Interpretation This is a pulmonary function test with spirometry, plethysmography and diffusing capacity. The test was performed and results interpreted in accordance with the 2019 and 2005 ATS/ERS Task Force guidelines respectively using the Global Lung Function Initiative-2012 reference equations. Patient demonstrated good effort and cooperation. Reproducibility criteria were met. The quality of the spirometry maneuver was Grade B. Findings: Spirometry: There is decreased maximal expiratory airflow at all lung volumes with concave expiratory flow tracing. The contour the inspiratory flow tracing is normal. The FVC is 3.03 L, 77% predicted. The FEV1 is 1.86 L, 65% predicted. The FEV1: FVC ratio 61%. Plethysmography: The total lung capacity is 7.55 L, 101% predicted. The functional residual capacity is 3.82 L, 92% predicted. The residual volume is 3.80 L, 130% predicted. The residual volume: Total lung capacity ratio is 50%. Diffusing capacity: The diffusing capacity unadjusted for hemoglobin and carboxyhemoglobin is 13.4, 58% predicted. The diffusing capacity adjusted for alveolar volume is 2.59, 79% predicted. In comparison to previous pulmonary function testing on 04/03/2018 in which only pre bronchodilator spirometry was performed the pre bronchodilator FVC is decreased from 3.41 L to 3.03 L. The pre bronchodilator FEV1 is decreased from 2.10 L to 1.86 L. Impression: There is a moderate obstructive abnormality. The increase in residual volume to total lung volume ratio is consistent with hyperinflation from an obstructive abnormality. The diffusing capacity unadjusted for hemoglobin and carboxyhemoglobin is moderately decreased and normalizes when adjusted for alveolar volume. In comparison to previous pulmonary function testing on 04/03/2018 there has been a significant decrease in the FVC and FEV1. Clinical correlation is recommended.
== END 2024-09-27 07:57 | disposition home or self-care (01) ==
PROVIDERS: PCP Family Medicine Adolescent Medicine; Visit Provider Internal Medicine
DX: R06.02 Shortness of breath (principal); R94.2 Abnormal results of pulmonary function studies
CPT/HCPCS: 94375; 94726; 94729

== ENCOUNTER 2024-10-07 09:42 | Inpatient (IN) | payer MEDICARE, SELFPAY ==
[2024-10-07] VITALS (19 sets, daily range): BP systolic 119–172; BP diastolic 69–116; PULSE 52–105; RESP 16–24; TEMP 36.4–36.7; O2SAT 94–100
--- NOTE | ~2024-10-07 | XR_ITS ---
XR chest 2V Ordering provider: Rito Hannon III, DO History: 89 years Male with . cp, weakness, sob . Comparison: None. FINDINGS: MEDIASTINUM: The cardiac silhouette is slightly enlarged. LUNGS: No infiltrates, effusions or pneumothorax. OTHER: No free air under the diaphragm. Degenerative changes of the spine. IMPRESSION: No acute cardiopulmonary pathology. Reviewed, dictated and finalized at location A. PULVERIZING OPERATOR
--- NOTE | 2024-10-07 09:43 | ECG_ITS ---
Test Date: 2024-10-07 09:51:07 Measurements Intervals [place] Rate: 72 P: 0 [place]: 0 QRS: -4 QRSD: 117 T: 55 QT: 403 QTc: 442 Interpretive Statements ATRIAL FIBRILLATION INTRAVENTRICULAR CONDUCTION DELAY CONSIDER ANTERIOR INFARCT, AGE INDETERMINATE CONSIDER INFERIOR INFARCT, AGE INDETERMINATE BORDERLINE ST-T WAVE ABNORMALITY- LAT/HIGH LAT LEADS BASELINE ARTIFACT- I, III, AVL, AVF, V6 ABNORMAL ECG No previous ECG available for comparison Electronically Signed On 10-07-2024 10:08:53 JOB CHECKER by Toribio Devlin D.O.
[2024-10-07 10:02] LABS: Basophils Absolute Auto 0.1 K/mm3 (0.0-0.1); Basophils Percent Auto 0.8 % (0.2-1.2); Eosinophils Absolute Auto 0.4 K/mm3 (0-0.3); Eosinophils Percent Auto 4.9 % (0-4.4); Hematocrit 43.5 % (42.0-52.0); Hemoglobin 14.7 g/dL (14.0-18.0); Immature Granulocyte Absolute 0.02 K/mm3 (0.00-0.031); Immature Granulocyte Percent A 0.3 % (0-0.5); Lymphocytes Absolute Auto 2.27 K/mm3 (0.9-3.2); Lymphocytes Percent Auto 29.1 % (18.3-44.2); Mean Corpuscular HGB Conc 33.8 g/dl (32-36); Mean Corpuscular Hemoglobin 31.3 pg (26-34); Mean Corpuscular Volume 92.8 fl (80-100); Mean Platelet Volume 9.8 fl (7.4-10.4); Monocytes Absolute Auto 0.5 K/mm3 (0.1-0.6); Monocytes Percent Auto 6.1 % (2.6-8.5); Neutrophils Absolute Auto 4.6 K/mm3 (1.3-6.7); Neutrophils Percent Auto 58.8 % (45.5-73.1); Platelet Count Result 152 k/mm3 (150-375); Red Blood Count 4.69 M/mm3 (4.6-6.20); Red Cell Distribution Width 13.2 % (11.5-14.5); White Blood Count 7.8 K/mm3 (4.5-10.0)
[2024-10-07 10:13] LABS: INR 1.4; Prothrombin Time 17.1 Seconds (11.1-14.7)
[2024-10-07 10:14] LABS: Alanine Aminotransferase 12 U/L (6-50); Albumin Level 4.2 g/dL (3.5-5.1); Alkaline Phosphatase 80 U/L (38-126); Anion Gap 7 mmol/L (4-12); Aspartate Amino Transferase 26 U/L (17-59); Bilirubin,Total 1.5 mg/dL (0.2-1.3); Blood Urea Nitrogen 19 mg/dL (9-20); Calcium 9.2 mg/dL (8.4-10.2); Carbon Dioxide 27 mmol/L (22-30); Chloride 105 mmol/L (98-107); Estimated CRCL calculation 62 ml/min; Estimated Glomerular Filt Rate > 60; Glucose 113 mg/dL (65-110); Lipase 64 U/L (23-300); Partial Thromboplastin Time 49.4 Seconds (22.3-36.8); Potassium 4.1 mmol/L (3.4-5.0); Sodium 139 mmol/L (137-145)
[2024-10-07 10:25] LABS: Troponin I < 0.012 ng/mL (0.000-0.034)
[2024-10-07] MEDS: ASPIRIN 81 MG CHEWABLE TABLET 324 MG PO (11:37)
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
[2024-10-07] MEDS: NITROGLYCERIN OINTMENT 1 INCH DOSE TRANSDERM (13:21)
--- NOTE | 2024-10-07 13:27 | ECG_ITS ---
Test Date: 2024-10-07 13:30:55 Measurements Intervals [place] Rate: 54 P: 0 IA: 0 QRS: -10 QRSD: 104 T: 61 QT: 454 QTc: 430 Interpretive Statements ATRIAL FIBRILLATION WITH SLOW VENTRICULAR RESPONSE CONSIDER INFERIOR INFARCT, AGE INDETERMINATE CONSIDER ANTERIOR INFARCT, AGE INDETERMINATE ABNORMAL ECG Compared to ECG 10/07/2024 09:51:07 HEART RATE HAS DECREASED Electronically Signed On 10-07-2024 13:33:53 ECLECTIC DOCTOR by Toribio Devlin D.O.
[2024-10-07 13:29] LABS: Troponin I < 0.012 ng/mL (0.000-0.034)
--- NOTE | 2024-10-07 13:29 | PC.NURSE ---
Attempted to call report to IMU. Erica trinidad RN states she hasn't told Myriam SANDRA that she is getting the pt. IMU to call for report
--- NOTE | 2024-10-07 15:35 | ADMGEN ---
This patient, Jatin Dowd, was admitted to IMU Room 210-01. Patient/family oriented to hospital policies and general routines including ID bracelet, bed and alarms, visiting hours, pain management, procedures, bathroom and other care routines, personal items, smoking policy, room service/diet, and visiting hours. Information on how to activate the Rapid Response Team has been discussed. Patient/Family are encouraged to report perceived risks to care and to ask questions if they do not understand what they are told or what they should do.
[2024-10-07 16:05] LABS: Troponin I < 0.012 ng/mL (0.000-0.034)
[2024-10-07 18:57] LABS: Troponin I < 0.012 ng/mL (0.000-0.034)
[2024-10-07] MEDS: TAMSULOSIN HCL 0.4 MG CAPSULE PO (19:23)
[2024-10-07] MEDS: OPTI-GEN TAB 1 TABLET PO (19:24)
[2024-10-07] MEDS: FLUTICASONE/SALMETEROL 230-21 MCG INHALER 1 PUFF 2 PUFF INHALATION (20:08)
[2024-10-07] MEDS: POTASSIUM CHLORIDE 10 MEQ ER TABLET PO (20:58)
[2024-10-07] MEDS: ACETAMINOPHEN 325 MG TABLET 650 MG PO (21:39)
[2024-10-07] MEDS: PRAVASTATIN SODIUM 20 MG TABLET 40 MG PO (21:40)
[2024-10-07] MEDS: METOPROLOL SUCCINATE EXT REL 100 MG TABCR PO (21:41)
[2024-10-08] VITALS (21 sets, daily range): BP systolic 128–181; BP diastolic 73–105; PULSE 56–82; RESP 16–24; TEMP 36.4–36.7; O2SAT 93–96
[2024-10-08 05:30] LABS: Anion Gap 5 mmol/L (4-12); Blood Urea Nitrogen 17 mg/dL (9-20); Calcium 8.6 mg/dL (8.4-10.2); Carbon Dioxide 24 mmol/L (22-30); Chloride 107 mmol/L (98-107); Estimated CRCL calculation 72 ml/min; Estimated Glomerular Filt Rate > 60; Glucose 83 mg/dL (65-110); Magnesium 1.9 mg/dL (1.6-2.3); Sodium 136 mmol/L (137-145)
[2024-10-08] MEDS: TAMSULOSIN HCL 0.4 MG CAPSULE PO ×2 (09:12→16:45)
[2024-10-08] MEDS: OPTI-GEN TAB 1 TABLET PO ×2 (09:13→16:45)
[2024-10-08] MEDS: FLUTICASONE/SALMETEROL 230-21 MCG INHALER 1 PUFF 2 PUFF INHALATION ×2 (09:41→20:59)
[2024-10-08] MEDS: ISOSORBIDE MONONITRATE 30 MG TAB.ER.24H PO (12:21)
--- NOTE | 2024-10-08 13:30 | P.DS_ITS ---
DS: Admitting Diagnosis Discharge Date 10/08/24 Admitting Diagnosis Chest pain DS: Discharge Diagnosis Discharge Diagnosis (1) Chest pain: Code(s): R07.9 - Chest pain, unspecified Status: Acute DS: Summary Hospital Course Hospital Course: This is a very pleasant 89-year-old male with coronary artery disease, diastolic congestive heart failure, persistent atrial fibrillation, pulmonary hypertension, orthostatic hypotension, and history of deep venous thrombosis and pulmonary embolism who presented to the emergency department for evaluation of chest pain. The patient provides the following history. He had RSV in November 2023 and has never rebounded back to baseline. It is to the point where he barely leaves his home as he is not able to walk more than 10 ft without feeling short of breath. He recently saw Dr. Sanches in clinic for evaluation of exertional chest pressure and shortness of breath. Per patient report, he had an abnormal stress test and there are plans for cardiac catheterization on 10/17/2024. This morning he was awakened from sleep at about 03:00 with nonradiating mid chest pressure associated with mild shortness of breath. He is not certain as to how long it lasted but ?awhile.? It has not recurred. He denies syncope, near sy ncope, pleuritic pain, palpitations, nausea, vomiting, and sweats In the ED: Blood pressure was 172/116 on arrival with otherwise stable vital signs. CMP and CBC were really unremarkable and initial troponin was negative. Chest x-ray was without acute findings. EKG showed atrial fibrillation with intraventricular conduction delay and borderline ST T-wave abnormalities in the lateral leads. He was started on nitro paste with improvement in chest pain and blood pressures. He is being admitted to the IMU in this setting for close monitoring and Cardiology consultation. Patient denies any chest pain today. Isosorbide mononitrate wsa restarted, patient started on Lisinopril 5mg and HCTZ 12.5mg daily for better blood pressure control. Cardiology evaluated and noted they will follow patient outpatient for possible cardiac cath. F/u [facility] PCP in 3-5 days, F/u with cardiology as instructed. Continue other home meds. Time Spent with Patient Time attestation: Total time spent providing and/or coordinating discharge services: DS: Data Data Completed and Pending Labs on day of discharge: Labs from last 24 hours 10/08/24 10/07/2410/07/24 04:55 18:26 15:26 Sodium 136 L Potassium 4.0 Chloride 107 Carbon Dioxide 24 Anion Gap 5 BUN 17 Creatinine 0.70 Estim Creat Clear Calc 72 Estimated GFR > 60 Glucose 83 Calcium 8.6 Magnesium 1.9 Troponin I < 0.012 < 0.012 Discharge Plan Discharge Attending physician on discharge: Marlyn Sweeney Consulting providers: Karen Dias Discharging Clinician: Marlyn Sweeney Anticipated Discharge Date/Time: 10/08/24 13:26 Patient Disposition: Home, Self-Care Activity: as tolerated Diet: heart healthy Discharge Instructions: F/u with PPC in i3-5 days F/u with cardiology as instructed for outpatient cardiac cath. Patient Instructions: Antibiotic Form Stand Alone Forms: General Discharge Information Follow-up/Referrals: Karen Dias, JORDYN-C [Advanced Practice Nurse] - (F/u with cardiology as instructed for outpatient cardiac cath ) Kashif Zhou MD [Primary Care Provider] - (F/u with PCP in 3-5 days ) Discharge Medications: New lisinopril 5 mg Tablet 5 mg PO QAM 30 Days Qty: 30 1RF hydrochlorothiazide 12.5 mg tablet 12.5 mg PO DAILY Qty: 30 1RF Continued mesalamine 500 mg capsule, extended release 1,000 mg PO BID pravastatin 40 mg tablet 40 mg PO DAILY Patient Comments: at bedtime celecoxib [Celebrex] 200 mg capsule 200 mg BID potassium chloride 10 mEq capsule, extended release 10 meq PO DAILY Rx Instructions: At bedtime dabigatran etexilate [Pradaxa] 150 mg capsule 150 mg PO BID Centrum Silver Men 300-600-300 mcg tablet 1 tablet PO DAILY Dulera 200-5 mcg/actuation HFA aerosol inhaler 2 puff inhalation BID PreserVision AREDS-2 250-90-40-1 mg Capsule 1 tablet PO BID metoprolol succinate 100 mg tablet extended release 24 hr 100 mg PO DAILY Rx Instructions: At bedtime tamsulosin 0.4 mg capsule 0.4 mg PO BID isosorbide mononitrate 30 mg tablet extended release 24 hr 30 mg PO DAILY clonazepam 0.5 mg tablet 0.5 mg PO QHS PRN (Reason: restless leg(s)) Qty: 30 5RF Date of admission: 10/07/24 12:28 Primary Care Provider: Kashif Zhou Admitting Provider: Jonathan Blackwood Attending physician on admission: Jonathan Blackwood Condition: Stable
[2024-10-08] MEDS: lisinopriL 5 MG TABLET PO (13:37)
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
[2024-10-08] MEDS: PRAVASTATIN SODIUM 20 MG TABLET 40 MG PO (20:49)
[2024-10-08] MEDS: METOPROLOL SUCCINATE EXT REL 100 MG TABCR PO (20:49)
[2024-10-08] MEDS: POTASSIUM CHLORIDE 10 MEQ ER TABLET PO (20:49)
[2024-10-09] VITALS (28 sets, daily range): BP systolic 91–162; BP diastolic 61–102; PULSE 59–86; RESP 12–24; TEMP 36.4–36.6; O2SAT 90–95
[2024-10-09] MEDS: FLUTICASONE/SALMETEROL 230-21 MCG INHALER 1 PUFF 2 PUFF INHALATION (08:15)
[2024-10-09] MEDS: ISOSORBIDE MONONITRATE 30 MG TAB.ER.24H PO (08:59)
[2024-10-09] MEDS: OPTI-GEN TAB 1 TABLET PO ×2 (08:59→17:40)
[2024-10-09] MEDS: lisinopriL 5 MG TABLET PO (08:59)
[2024-10-09] MEDS: TAMSULOSIN HCL 0.4 MG CAPSULE PO ×2 (08:59→17:40)
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
--- NOTE | 2024-10-09 12:06 | WPDCARDPROC ---
Cardiac Cath Procedure Note Date of procedure:: 10/09/24 Performing physician:: CATHETERIZATION LABORATORY REPORT Procedure Date: 10/09/2024 Account Representative: Kendrick Pink M.D., [facility]? Referring Physician: Kendrick Pink M.D. Anesthesia: Versed and Fentanyl were ordered and given in my presence at 11:41, procedure ended at 11:57. Supervision of nurse monitored moderate sedation with Versed and Fentanyl was provided for 16 minutes. Total of Versed 1mg and Fentanyl 50mcg were administered by the Senior Care Assistant RN Sam Mahan. Pre-op Diagnosis: Coronary artery disease Post-op Diagnosis: Two vessel coronary artery disease, including PRIVACY COMPLIANCE MANAGER of mid LAD. Procedure(s): 1. Moderate sedation 2. Ultrasound-guided access of the right radial artery 3. Coronary angiography Access Site: Right radial artery Brief History and Clinical Indications: Patient is an 89 year old male who is referred for [facility] for chest pain. All risks, benefits and alternatives to left heart catheterization with or without percutaneous coronary intervention was discussed at length with the patient. Risk of complications including but not limited to bleeding, infection, arrhythmia, stroke, worsening kidney function, blood loss, groin hematoma, limb loss, emergency coronary artery bypass grafting, and even were discussed with the patient and all questions were answered. The patient understood and wished to proceed. Time out called, patient name, date of , medical record number, allergies, procedure performed, identify Account Representative, patient and staff member concurred with accurate data, procedure carried on. Findings: LEFT HEART CATHETERIZATION FINDINGS: 1. Left main: The left main coronary artery is widely patent without any significant obstructive disease. 2. Left anterior descending: The proximal LAD has diffuse mild disease. Immediately after the bifurcation of the first diagonal branch, the mid LAD is PRIVACY COMPLIANCE MANAGER. The first diagonal branch has mild diffuse disease. There are faint [id number]-[id number] collaterals to the LAD. There are exjpx-[id number] collaterals to the LAD. 3. Left circumflex: The proximal and mid LCX has diffuse mild disease; the AV bobo LCX is small caliber. LCX continues on as a large caliber OM vessel that also has diffuse mild disease. 4. Right coronary artery: The RCA is the dominant vessel. The proximal-mid LAD has mild diffuse disease. The mid portion of the RCA has a focal 80-90% stenosis. The distal RCA at the bifurcation of the RPDA and RPLV has a 90% stenosis (1, 0, 0). There are [id number] collaterals to the LAD. Description of Procedure: Informed consent signed and placed in the chart. Patient transferred to laborer sawmill room. Prepped and draped in usual sterile fashion. 2% lidocaine injected subcutaneously in right wrist area. 22-gauge venipuncture catheter used to access the right radial artery under ultrasound guidance. 6-FR slender sheath placed in right radial artery. Nitroglycerine and Verapamil were given intraarterial through the sheath. Versacore wire advanced under fluoroscopy 5F Tig 4 diagnostic catheter engaged Left Main Coronary Artery. 5F Tig 4 diagnostic catheter engaged Right Coronary Artery Multiple orthogonal angiogram obtained and reviewed Attempted to advance 5F Pigtail catheter across aortic root to obtain LVEDP, but given subclavian/ascending aorta tortuosity, unable to advance catheter. Hemostasis was achieved by application of TR band. Disposition: Floor Plan: The patient will be monitored in the recovery area. Continue aggressive medical therapy and risk factor modification. ? Kendrick Pink M.D. Interventional Cardiology
--- NOTE | 2024-10-09 13:09 | P.PNCA_ITS ---
Progress Note: A&P Assessment and Plan (1) Chest pain: Code(s): R07.9 - Chest pain, unspecified Status: Acute Assessment and Plan: Troponins negative x 4. EKG without ischemic changes. [facility] today shows two vessel coronary artery disease, with [employer]ARE[employer] MANAGER of mid LAD, significant lesion in mid RCA and significant lesion in the distal RCA at the bifurcation of RPDA/RPLV. RCA provides right to left collaterals to the LAD. There are very faint [id number] collaterals as well. Will plan for staged PCI of the RCA with Dr. Sanches at [facility]. Will have our office arrange. Start ASA 81mg once daily for now, continue high intensity statin. Will optimize antianginal therapy. Will increase his Imdur to 60mg. Continue Metoprolol. PRN SL NTG. Okay to discharge home later today. (2) Chronic anticoagulation: Code(s): Z79.01 - [employer] (current) use of anticoagulants Status: Acute Assessment and Plan: Holding Pradaxa for [facility], can resume Pradaxa tomorrow. (3) Persistent atrial fibrillation: Code(s): I48.19 - Other persistent atrial fibrillation Status: Acute Assessment and Plan: Rate controlled. Continue Metoprolol. Holding Pradaxa for [facility], can resume Pradaxa tomorrow. (4) Coronary artery disease: Code(s): I25.10 - Atherosclerotic heart disease of [place] coronary artery without angina pectoris Status: Acute Assessment and Plan: As above. (5) Essential (primary) hypertension: Code(s): I10 - Essential (primary) hypertension Status: Acute Assessment and Plan: Stable, continue home antihypertensives (6) Heart failure with preserved ejection fraction: Code(s): I50.30 - Unspecified diastolic (congestive) heart failure Status: Acute Assessment and Plan: Compensated. Subjective Date/time seen: 10/09/24 13:09 Interval history: Reason for visit: Chest pain HPI: This is an 89 year old male with coronary artery disease, persistent atrial fibrillation on Pradaxa, chronic diastolic heart failure, pulmonary hypertension, history of PE and bilateral DVT, orthostatic hypotension who presented to [facility] with chest pressure. He states he woke up at 3AM with chest heaviness and shortness of breath that lasted for about 2 hours. Does get occasional exertional chest pain. Sees Dr. Sanches in the office. Scheduled for [facility] on 10/17 due to abnormal stress test. Troponins here are negative. 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 He is currently chest pain free. Nuclear stress test shows LVEF 53%, hypokinesis in the mid anteroseptal segment, mid inferoseptal segment, apical septal segment, and apical segment. There is a large area of moderate-severe ischemia involving the apex, apical septal, apical anterior, mid anteroseptum, and mid inferoseptum Date of service 10/09: No more episodes of chest pain since admission, feeling well. Tele with no arrhythmias. Review of Systems Review of Systems: All systems reviewed & are unremarkable except as noted in HPI and below (HPI) Exam Const: General: comfortable and no acute distress HENMT: Mouth: Yes moist mucous membranes Eyes: General: appearance normal, both eyes and all related structures Sclera: sclerae normal Resp: Effort & Inspection: normal respiratory effort Cardio: Rate: regular rate Rhythm: abnormal rhythm irregularly irregular Skin: General skin exam: normal color Neuro: Speech: normal speech Psych: Mental Status: mental status grossly normal Affect: normal affect Objective Data Vital Signs Vital Signs: Vital Signs - 24 hr 10/08/24 14:00 10/08/24 16:00 10/08/24 16:00 Temperature Pulse Rate 69 67 Pulse Rate [Apical] Respiratory Rate Blood Pressure Pulse Oximetry Oxygen Delivery Room Air 10/08/24 16:00 10/08/24 18:00 10/08/24 20:49 Temperature 36.4 C L Pulse Rate 64 63 64 Pulse Rate [Apical] Respiratory Rate 24 H Blood Pressure 137/86 Pulse Oximetry 95 Oxygen Delivery 10/08/24 20:59 10/08/24 20:00 10/08/24 21:02 Temperature 36.6 C Pulse Rate 64 Pulse Rate [Apical] Respiratory Rate 24 H Blood Pressure 141/73 H 128/81 144/76 H Pulse Oximetry 96 Oxygen Delivery 10/08/24 20:58 10/09/24 00:15 10/08/24 20:00 Temperature 36.6 C Pulse Rate 67 80 Pulse Rate [Apical] Respiratory Rate 24 H Blood Pressure 162/91 H Pulse Oximetry 95 Oxygen Delivery Room Air 10/09/24 00:00 10/09/24 04:05 10/09/24 04:00 Temperature 36.5 C Pulse Rate 85 Pulse Rate [Apical] Respiratory Rate 24 H Blood Pressure 141/92 H Pulse Oximetry 95 Oxygen Delivery Room Air Room Air 10/08/24 20:00 10/08/24 22:00 10/09/24 00:00 Temperature Pulse Rate 59 L 81 72 Pulse Rate [Apical] Respiratory Rate Blood Pressure Pulse Oximetry Oxygen Delivery 10/09/24 02:00 10/09/24 04:00 10/09/24 06:00 Temperature Pulse Rate 73 72 79 Pulse Rate [Apical] Respiratory Rate Blood Pressure Pulse Oximetry Oxygen Delivery 10/09/24 07:15 10/09/24 07:21 10/09/24 07:21 Temperature 36.4 C 36.4 C Pulse Rate 72 72 78 Pulse Rate [Apical] Respiratory Rate 20 20 Blood Pressure 152/102 H 152/102 H 143/98 H Pulse Oximetry 92 92 93 Oxygen Delivery 10/09/24 07:22 10/09/24 08:00 10/09/24 08:00 Temperature Pulse Rate 86 79 Pulse Rate [Apical] Respiratory Rate Blood Pressure 139/82 Pulse Oximetry 94 Oxygen Delivery Room Air 10/09/24 10:00 10/09/24 12:10 10/09/24 12:10 Temperature Pulse Rate 79 62 Pulse Rate [Apical] 62 Respiratory Rate 13 Blood Pressure 124/87 Pulse Oximetry 92 Oxygen Delivery Room Air 10/09/24 12:25 10/09/24 12:25 10/09/24 12:40 Temperature Pulse Rate 60 64 Pulse Rate [Apical] 60 Respiratory Rate 14 16 Blood Pressure 124/87 122/92 H Pulse Oximetry 92 91 Oxygen Delivery Room Air Room Air 10/09/24 12:40 10/09/24 12:55 10/09/24 12:55 Temperature Pulse Rate 72 Pulse Rate [Apical] 64 72 Respiratory Rate 22 H Blood Pressure 113/86 Pulse Oximetry 92 Oxygen Delivery Room Air Intake/Output Intake/Output: Intake & Output 10/06/24 10/07/24 10/08/24 10/09/24 23:59 23:59 23:59 23:59 Intake Total 540 1010 Output Total 100 1700 1100 Balance 440 -962 -1100 Meds/Results Medications: Active Medications Generic Name Dose Route Start Last Admin Trade Name Freq PRN Reason Stop Dose Admin Acetaminophen 650 mg 10/07/24 14:10 10/07/24 21:39 Acetaminophen 325 Mg Tablet PO 650 mg Q6H PRN Administration Mild Pain (1-3) or Fever Clonazepam 0.5 mg 10/07/24 16:13 Clonazepam (*Crx) 0.5 Mg Tablet PO QHS PRN restless leg(s) Isosorbide Mononitrate 60 mg 10/10/24 09:00 Isosorbide Mononitrate 60 Mg Tab.Er.24h PO QAM MARLYS Lisinopril 5 mg 10/08/24 13:20 10/09/24 08:59 Lisinopril 5 Mg Tablet PO 5 mg QAM MARLYS Administration Metoprolol Succinate 100 mg 10/07/24 21:20 10/08/24 20:49 Metoprolol Succinate Ext Rel 100 Mg Tabcr PO 100 mg HS MARLYS Administration Multivitamins/Minerals 1 tablet 10/08/24 09:00 10/08/24 07:41 Opti-Gen Tab PO Not Given DAILY MARLYS Multivitamins/Minerals 1 tablet 10/07/24 17:00 10/09/24 08:59 Opti-Gen Tab PO 1 tablet BID MARLYS Administration Potassium Chloride 10 meq 10/07/24 21:00 10/08/24 20:49 Potassium Chloride 10 Meq Er Tablet PO 10 meq HS MARLYS Administration Pravastatin Sodium 40 mg 10/07/24 21:22 10/08/24 20:49 Pravastatin Sodium 20 Mg Tablet PO 40 mg HS MARLYS Administration Fluticasone/Salmeterol 2 puff 10/07/24 20:00 10/09/24 08:15 Fluticasone/Salmeterol 230-21 Mcg Inhaler 1 Puff INHALATION 2 puff Q12HRT MARLYS Administration Tamsulosin HCl 0.4 mg 10/07/24 17:00 10/09/24 08:59 Tamsulosin Hcl 0.4 Mg Capsule PO 0.4 mg BID MARLYS Administration Radiology Results: ITS Impressions Chest X-Ray 10/07/24 10:21 IMPRESSION: No acute cardiopulmonary pathology.
--- NOTE | 2024-10-09 14:35 | PM.DS ---
DS: Admitting Diagnosis Discharge Date 10/09/24 Admitting Diagnosis Chest pain DS: Discharge Diagnosis Discharge Diagnosis (1) Coronary artery disease: Code(s): I25.10 - Atherosclerotic heart disease of [place] coronary artery without angina pectoris Status: Acute DS: Summary Hospital Course Hospital Course: This is a very pleasant 89-year-old male with coronary artery disease, diastolic congestive heart failure, persistent atrial fibrillation, pulmonary hypertension, orthostatic hypotension, and history of deep venous thrombosis and pulmonary embolism who presented to the emergency department for evaluation of chest pain. The patient provides the following history. He had RSV in November 2023 and has never rebounded back to baseline. It is to the point where he barely leaves his home as he is not able to walk more than 10 ft without feeling short of breath. He recently saw Dr. Sanches in clinic for evaluation of exertional chest pressure and shortness of breath. Per patient report, he had an abnormal stress test and there are plans for cardiac catheterization on 10/17/2024. This morning he was awakened from sleep at about 03:00 with nonradiating mid chest pressure associated with mild shortness of breath. He is not certain as to how long it lasted but ?awhile.? It has not recurred. He denies syncope, near syncope, pleuritic pain, palpitations, nausea, vomiting, and sweats In the ED: Blood pressure was 172/116 on arrival with otherwise stable vital signs. CMP and CBC were really unremarkable and initial troponin was negative. Chest x-ray was without acute findings. EKG showed atrial fibrillation with intraventricular conduction delay and borderline ST T-wave abnormalities in the lateral leads. He was started on nitro paste with improvement in chest pain and blood pressures. He is being admitted to the IMU in this setting for close monitoring and Cardiology consultation. Nuclear stress test shows LVEF 53%, hypokinesis in the mid anteroseptal segment, mid inferoseptal segment, apical septal segment, and apical segment. There is a large area of moderate-severe ischemia involving the apex, apical septal, apical anterior, mid anteroseptum, and mid inferoseptum Patient underwent Cardiac cath today which showed RCA and distal RCA disease, and cardiology plans for staged PCI. Cardiology recommended Aspirin, Simvastatin, Isosorbide mononitrate 60mg and Metoprolol. PRN Nitro sublingual. Will follow up with cardiology for planned staged PCI. F/u wt PCP in 3-5 days, F/u with cardiology as instructed. Continue other home meds. Time Spent with Patient Time attestation: Total time spent providing and/or coordinating discharge services: Discharge Plan Discharge Attending physician on discharge: Marlyn Sweeney Consulting providers: Karen Dias Discharging Clinician: Marlyn Sweeney Anticipated Discharge Date/Time: 10/08/24 13:26 Patient Disposition: Home, Self-Care Activity: as tolerated Diet: heart healthy Discharge Instructions: F/u with PPC in i3-5 days F/u with cardiology as instructed for outpatient cardiac cath. Patient Instructions: Antibiotic Form Stand Alone Forms: General Discharge Information Follow-up/Referrals: Karen Dias, JORDYN-C [Advanced Practice Nurse] - (F/u with cardiology as instructed for outpatient cardiac cath ) Kashif Zhou MD [Primary Care Provider] - (F/u with PCP in 3-5 days ) Discharge Medications: New aspirin 81 mg Tablet,Delayed Release (Dr/Ec) 81 mg PO QAM 30 Days Qty: 30 1RF isosorbide mononitrate 60 mg Tablet Extended Release 24 Hr 60 mg PO QAM 30 Days Qty: 30 1RF nitroglycerin [Nitrostat] 0.4 mg Tablet, Sublingual 0.4 mg sublingual Q5MIN PRN (Reason: Chest Pain) 14 Days Qty: 10 0RF Continued mesalamine 500 mg capsule, extended release 1,000 mg PO BID pravastatin 40 mg tablet 40 mg PO DAILY Patient Comments: at bedtime celecoxib [Celebrex] 200 mg capsule 200 mg BID potassium chloride 10 mEq capsule, extended release 10 meq PO DAILY Rx Instructions: At bedtime dabigatran etexilate [Pradaxa] 150 mg capsule 150 mg PO BID Centrum Silver Men 300-600-300 mcg tablet 1 tablet PO DAILY Dulera 200-5 mcg/actuation HFA aerosol inhaler 2 puff inhalation BID PreserVision AREDS-2 250-90-40-1 mg Capsule 1 tablet PO BID metoprolol succinate 100 mg tablet extended release 24 hr 100 mg PO DAILY Rx Instructions: At bedtime tamsulosin 0.4 mg capsule 0.4 mg PO BID isosorbide mononitrate 30 mg tablet extended release 24 hr 30 mg PO DAILY clonazepam 0.5 mg tablet 0.5 mg PO QHS PRN (Reason: restless leg(s)) Qty: 30 5RF Date of admission: 10/09/24 08:54 Primary Care Provider: Kashif Zhou Admitting Provider: Jonathan Blackwood Attending physician on admission: Jonathan Blackwood Condition: Stable
== END 2024-10-09 18:26 | disposition home or self-care (01) | DRG 287 ==
LOC: ANHED 12:27 → ANHIMU 13:22
PROVIDERS: Internal Medicine; Physician Assistant; Admitting Provider Internal Medicine; Emergency Provider Emergency Medicine; PCP Family Medicine Adolescent Medicine; Visit Provider Internal Medicine
PROC: 4A023N7 Measurement of Cardiac Sampling and Pressure, Left Heart, Percutaneous Approach (ICD-10-PCS; CPT 93454; principal; 2024-10-09 11:00)
DX: I25.10 Atherosclerotic heart disease of native coronary artery without angina pectoris (principal); I50.32 Chronic diastolic (congestive) heart failure; I48.19 Other persistent atrial fibrillation; K50.90 Crohn's disease, unspecified, without complications; I10 Essential (primary) hypertension; I42.8 Other cardiomyopathies; I27.20 Pulmonary hypertension, unspecified; J44.9 Chronic obstructive pulmonary disease, unspecified; E78.5 Hyperlipidemia, unspecified; M19.90 Unspecified osteoarthritis, unspecified site; N40.0 Benign prostatic hyperplasia without lower urinary tract symptoms; Z96.641 Presence of right artificial hip joint; Z96.653 Presence of artificial knee joint, bilateral; Z79.01 Long term (current) use of anticoagulants; Z86.718 Personal history of other venous thrombosis and embolism; Z86.711 Personal history of pulmonary embolism
CPT/HCPCS: 36415; 71046; 80048; 80053; 83690; 83735; 84484; 85025; 85610; 85730; 93005; 93454; 94640; 99285; A9270; C1769; C1887; C1894; G0378; J1644; J2003; J2250; J2305; J3010; J7040

== ENCOUNTER 2025-01-16 08:45 | Outpatient (RCR) | payer MEDICARE, SELFPAY ==
[2024-12-03 15:43] VITALS: PULSE 85
== END 2025-01-20 09:28 | disposition home or self-care (01) ==
LOC: ANHCPREHAB 08:45
PROVIDERS: PCP Family Medicine Adolescent Medicine; Visit Provider Internal Medicine
DX: Z98.61 Coronary angioplasty status (principal)
CPT/HCPCS: 93798